=== PATIENT | female | born 1965 | race Hispanic/Latino ===

== ENCOUNTER 2017-04-02 14:02 | Inpatient (IN) | payer MEDICARE, MEDICAID ==
[2017-04-02] MEDS ORDERED: Oxycodone/Acetaminophen 5/325 mg Tab PO STA (15:09)
--- NOTE | 2017-04-02 15:17 | ED PDOC ---
HPI: Back Time Seen by Provider: 04/02/17 14:21 Chief Complaint (Nursing): Back Pain Chief Complaint (Provider): bradycardia History Per: Patient History/Exam Limitations: no limitations Onset/Duration Of Symptoms: Days (1) Current Symptoms Are (Timing): Still Present Additional Complaint(s): Chronic back pain which has been getting progressively worse for the last 3 months. Started taking clonidine 4 days ago to relieve pain. She does not remember the dose because it was actually prescribed to her over 1 and 1/2 years ago, after her last back surgery. She took 2 pills on the first day, and then 1 additional pill daily, last dose this morning. In addition she took her regular pain medications (Roxicet and MS Contin). Went for follow up visit with her pain management physician today and sent to ER for severely low heart rate. Admits that for the last month she has been having increasing falls. PMD Dr Austen Negrete. Past Medical History Reviewed: Historical Data, Nursing Documentation, Vital Signs Vital Signs: Last Vital Signs Temp 97 F L 04/02/17 14:08 Pulse 35 L 04/02/17 14:08 Resp 16 04/02/17 14:08 BP 145/83 04/02/17 14:08 Pulse Ox 100 04/02/17 14:08 - Medical History PMH: Anxiety, Back Problems - Surgical History Surgical History: Back Surgery Other surgeries: Ectopic - Family History Family History: States: No Known Family Hx - Social History Current smoker - smoking cessation education provided: Yes Alcohol: None Drugs: Denies - Home Medications Home Medications: Ambulatory Orders Medication Instructions Recorded Alprazolam [Xanax] 1 mg PO BID PRN 04/02/17 Escitalopram [Lexapro] 20 mg PO DAILY 04/02/17 Ivermectin [Stromectol] 3 mg PO DAILY 04/02/17 Morphine Sulfate [Morphine Sulfate 60 mg PO Q12H 04/02/17 ER] Multivitamin/Iron/Folic Acid 1 tab PO DAILY 04/02/17 [Centrum Complete Multivit Tab] Pregabalin [Lyrica] 100 mg PO Q8H 04/02/17 Zolpidem [Ambien] 10 mg PO HS 04/02/17 oxyCODONE [oxyCODONE Immediate 30 mg PO Q6H 04/02/17 Release Tab] - Allergies Allergies/Adverse Reactions: Allergies Allergy/AdvReac Type Severity Reaction Status Date / Time No Known Allergies Allergy Verified 11/27/14 16:34 Review of Systems ROS Statement: Except As Marked, All Systems Reviewed And Found Negative (and as per HPI) Cardiovascular: Negative for: Chest Pain, Light Headedness Respiratory: Negative for: Shortness of Breath Musculoskeletal: Positive for: Back Pain, Leg Pain Physical Exam - Reviewed Nursing Documentation Reviewed: Yes Vital Signs Reviewed: Yes - Physical Exam Appears: Positive for: No Acute Distress Head Exam: Positive for: ATRAUMATIC, NORMOCEPHALIC Skin: Positive for: Warm, Dry Eye Exam: Positive for: EOMI, PERRL ENT: Positive for: Pharynx Is (clear), Other (dry mucus membranes) Neck: Positive for: Painless ROM, Supple Cardiovascular/Chest: Positive for: Chest Non Tender, Bradycardia. Negative for : Murmur Respiratory: Positive for: Normal Breath Sounds. Negative for: Rales, Respiratory Distress Gastrointestinal/Abdominal: Positive for: Soft. Negative for: Tenderness Back: Positive for: Vertebral Tenderness (lumbar and paraspinal, distractable) Extremity: Positive for: Normal ROM. Negative for: Deformity Lymphatic: Negative for: Adenopathy Neurologic/Psych: Positive for: Alert, Other (speech slurred). Negative for: Motor/Sensory Deficits - Laboratory Results Result Diagrams: 04/02/17 14:00 04/02/17 15:24 - ECG ECG Rhythm: Positive for: Normal QRS, Normal ST Segment, Sinus Bradycardia O2 Sat by Pulse Oximetry: 100 Pulse Ox Interpretation: Normal - Progress ED Course And Treament: Pt already at risk of falls due to worsening back issues and chronic benzodiazepiene and opiate use. Needs hospitalization for observation, concern for clonidine effect worsening to AV block or syncope. - Physician Consult Information Physician Contacted: Selma Parra Outcome Of Conversation: Will put in orders for inpatient pain management. Disposition - Clinical Impression Clinical Impression: Back pain, Bradycardia Discussed With DrSergio: Slim Ritchie Comment: Medical Service Doctor Will See Patient In The: Hospital Counseled Patient/Family Regarding: Studies Performed, Diagnosis - Disposition Disposition Time: 15:30 Condition: GUARDED - Pt Status Changed To: Hospital Disposition Of: Observation - POA Present On Arrival: Falls Or Trauma
[2017-04-02] MEDS ORDERED: Oxycodone/Acetaminophen 5/325 mg Tab ONE (15:33)
[2017-04-02 15:34] LABS: BASO # 0.1 K/uL (0.0-0.2); BASO % 1.1 % (0.0-2.0); EOS # 0.2 K/uL (0.0-0.7); EOS % 1.8 % (0.0-4.0); HEMATOCRIT 43.7 % (34.0-47.0); LYMPH # 1.9 K/uL (1.0-4.3); LYMPH % 20.3 % (20.0-40.0); MEAN CELL VOLUME 94.6 fl (81.0-99.0); MEAN CORPUSCULAR HEMOGLOBIN 31.2 pg (27.0-31.0); MEAN PLATELET VOLUME 8.8 fl (7.2-11.7); MONO # 0.5 K/uL (0.0-0.8); MONO % 5.3 % (0.0-10.0); NEUT # 6.8 K/uL (1.8-7.0); NEUT % 71.5 % (50.0-75.0); NRBC % 0.1 % (0.0-0.0); RED CELL DISTRIBUTION WIDTH 14.3 % (11.5-14.5); WHITE BLOOD COUNT 9.5 K/uL (4.8-10.8)
[2017-04-02 15:42] LABS: ALB/GLOB RATIO 1.4 (1.0-2.1); ALCOHOL SERUM < 10 mg/dl (0-10); ALKALINE PHOSPHATASE 90 U/L (38-126); ALT/SGPT 25 U/L (9-52); AST/SGOT 20 U/L (14-36); BILIRUBIN,TOTAL 0.2 mg/dl (0.2-1.3); BLOOD UREA NITROGEN 9 mg/dl (7-17); CALCIUM 9.6 mg/dL (8.4-10.2); CARBON DIOXIDE 26 mmol/L (22-30); CHLORIDE 101 mmol/L (98-107); GFR AFRICAN-AMERICAN > 60; GLUCOSE,RANDOM 85 mg/dL (65-105); MAGNESIUM 1.7 MG/DL (1.6-2.3); PHOSPHOROUS 3.7 mg/dl (2.5-4.5); SODIUM 141 mmol/l (132-148); TOTAL PROTEIN 7.9 G/DL (6.3-8.2)
[2017-04-02 15:43] LABS: PARTIAL THROMBOPLASTIN TIME 33.8 Seconds (25.6-37.1)
[2017-04-02 16:11] LABS: THYROID STIMULATING HORMONE 0.26 mIU/ML (0.46-4.68)
[2017-04-02] MEDS ORDERED: Morphine 30 mg SR Tab PO SCH (20:45)
[2017-04-02] MEDS: Morphine 30 mg SR Tab PO SCH (22:05)
--- NOTE | 2017-04-03 07:47 | CP.PCM.CON ---
History of Present Illness - History of Present Illness History of Present Illness: Chronic back pain which has been getting progressively worse for the last 3 months. Started taking clonidine ( on her own) 4 days ago to relieve pain. She does not remember the dose because it was actually prescribed to her over 1 and 1/2 years ago, after her last back surgery. She took 2 pills on the first day, and then 1-2 pills daily for the last 5-6 days, last dose the morning of admission Her HR at time of my exam was 50 BPM HR rises with movement She is asymptomatic from the Bradycardia EKG: sinus Bradycardia Troponin: neg Echo: normal Past Patient History - Past Medical History & Family History Past Medical History?: Yes - Past Social History Smoking Status: Heavy Smoker > 10 Cigarettes Daily - CARDIAC Hx Cardiac Disorders: No - PULMONARY Hx Respiratory Disorders: No - NEUROLOGICAL Hx Neurological Disorder: No - HEENT Hx HEENT Problems: No - RENAL Hx Chronic Kidney Disease: No - ENDOCRINE/METABOLIC Hx Endocrine Disorders: No - HEMATOLOGICAL/ONCOLOGICAL Hx Blood Disorders: No Hx AIDS: No Hx Human Immunodeficiency Virus (HIV): No - INTEGUMENTARY Hx Dermatological Problems: No - MUSCULOSKELETAL/RHEUMATOLOGICAL Hx Musculoskeletal Disorders: Yes Hx Back Pain: Yes Hx Falls: Yes - GASTROINTESTINAL Hx Gastrointestinal Disorders: No - GENITOURINARY/GYNECOLOGICAL Hx Genitourinary Disorders: Yes Hx Incontinence: Yes - PSYCHIATRIC Hx Psychophysiologic Disorder: Yes Hx Anxiety: Yes Hx Substance Use: No - SURGICAL HISTORY Hx Surgeries: Yes Other/Comment: Back surgeries - ANESTHESIA Hx Anesthesia: Yes Hx Anesthesia Reactions: No Meds Allergies/Adverse Reactions: Allergies Allergy/AdvReac Type Severity Reaction Status Date / Time No Known Allergies Allergy Verified 11/27/14 16:34 - Medications Medications: Current Medications Enoxaparin Sodium (Lovenox) 40 mg SC DAILY [facility] PRN Reason: Protocol Hydromorphone HCl (Dilaudid) 4 mg PO Q6 PRN PRN Reason: Pain, severe (8-10) Last Admin: 04/03/17 01:05 Dose: 4 mg Morphine Sulfate (Morphine Extended Release Tab) 60 mg PO Q12 [facility] Last Admin: 04/02/17 22:05 Dose: 60 mg Multivitamins/Minerals (Therapeutic-M Tab) 1 tab PO DAILY [facility] Pregabalin (Lyrica) 100 mg PO Q8H [facility] Last Admin: 04/02/17 20:30 Dose: Not Given Zolpidem Tartrate (Ambien) 5 mg PO HS [facility] Last Admin: 04/02/17 22:12 Dose: Not Given Physical Exam - Constitutional Appears: Well - Respiratory Exam Respiratory Exam: NORMAL BREATHING PATTERN - Cardiovascular Exam Cardiovascular Exam: Bradycardia Results - Vital Signs Recent Vital Signs: Last Vital Signs Temp 97.3 F L 04/03/17 05:20 Pulse 39 L 04/03/17 05:20 Resp 18 04/03/17 05:20 BP 96/60 L 04/03/17 05:20 Pulse Ox 98 04/03/17 05:20 - Labs Result Diagrams: 04/02/17 14:00 04/02/17 15:24 Labs: Laboratory Results - last 24 hr 04/02/17 04/02/17 04/02/17 14:00 15:24 15:24 WBC 9.5 RBC 4.62 Hgb 14.4 Hct 43.7 MCV 94.6 D MCH 31.2 H MCHC 33.0 RDW 14.3 Plt Count 444 H D MPV 8.8 Neut % (Auto) 71.5 Lymph % (Auto) 20.3 [place] % (Auto) 5.3 Eos % (Auto) 1.8 Baso % (Auto) 1.1 Neut # 6.8 Lymph # 1.9 [place] # 0.5 Eos # 0.2 Baso # 0.1 PT INR APTT Sodium 141 Potassium 4.0 Chloride 101 Carbon Dioxide 26 Anion Gap 18 BUN 9 Creatinine 0.7 Est GFR ( Amer) > 60 Est GFR (Non-Af Amer) > 60 Random Glucose 85 Calcium 9.6 Phosphorus 3.7 Magnesium 1.7 Total Bilirubin 0.2 AST 20 ALT 25 Alkaline Phosphatase 90 Troponin I 0.0230 NT-Pro-B Natriuret Pep 722 Total Protein 7.9 Albumin 4.6 Globulin 3.3 Albumin/Globulin Ratio 1.4 TSH 3rd Generation 0.26 L Salicylates 6.9 Urine Opiates Screen Urine Methadone Screen Acetaminophen < 10.0 L Ur Barbiturates Screen Ur Phencyclidine Scrn Ur Amphetamines Screen U Benzodiazepines Scrn U Oth Cocaine Metabols U Cannabinoids Screen Alcohol, Quantitative < 10 04/02/17 04/03/17 15:24 03:01 WBC RBC Hgb Hct MCV MCH MCHC RDW Plt Count MPV Neut % (Auto) Lymph % (Auto) [place] % (Auto) Eos % (Auto) Baso % (Auto) Neut # Lymph # [place] # Eos # Baso # PT 11.1 INR 1.0 APTT 33.8 Sodium Potassium Chloride Carbon Dioxide Anion Gap BUN Creatinine Est GFR ( Amer) Est GFR (Non-Af Amer) Random Glucose Calcium Phosphorus Magnesium Total Bilirubin AST ALT Alkaline Phosphatase Troponin I NT-Pro-B Natriuret Pep Total Protein Albumin Globulin Albumin/Globulin Ratio TSH 3rd Generation Salicylates Urine Opiates Screen Positive H Urine Methadone Screen Negative Acetaminophen Ur Barbiturates Screen Negative Ur Phencyclidine Scrn Negative Ur Amphetamines Screen Negative U Benzodiazepines Scrn Positive U Oth Cocaine Metabols Negative U Cannabinoids Screen Negative Alcohol, Quantitative Assessment & Plan (1) Back pain Status: Acute (2) Bradycardia Assessment and Plan: Most likely secondary to meds will observe Status: Acute (3) Anxiety Status: Acute (4) Opiate dependence Status: Acute
--- NOTE | 2017-04-03 08:04 | CP.PCM.CON ---
History of Present Illness - History of Present Illness History of Present Illness: 52 yo woman from pain clinic is admitted for sinus bradycardia. 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 She was asymptomatic, but admitted to several episodes of lightheadedness and falls in the past several months. Her pain meds haven't been changed recently, in fact, they have been reduced and thus the need for her to take clonidine on her own. She has severe pain in her lower back, radiating down the legs and hips. She had attempted to undergo MRI as an outpatient but couldn't tolerate it due to pain. Past Patient History - Past Medical History & Family History Past Medical History?: Yes - Past Social History Smoking Status: Heavy Smoker > 10 Cigarettes Daily - CARDIAC Hx Cardiac Disorders: No - PULMONARY Hx Respiratory Disorders: No - NEUROLOGICAL Hx Neurological Disorder: No - HEENT Hx HEENT Problems: No - RENAL Hx Chronic Kidney Disease: No - ENDOCRINE/METABOLIC Hx Endocrine Disorders: No - HEMATOLOGICAL/ONCOLOGICAL Hx Blood Disorders: No Hx AIDS: No Hx Human Immunodeficiency Virus (HIV): No - INTEGUMENTARY Hx Dermatological Problems: No - MUSCULOSKELETAL/RHEUMATOLOGICAL Hx Musculoskeletal Disorders: Yes Hx Back Pain: Yes Hx Falls: Yes - GASTROINTESTINAL Hx Gastrointestinal Disorders: No - GENITOURINARY/GYNECOLOGICAL Hx Genitourinary Disorders: Yes Hx Incontinence: Yes - PSYCHIATRIC Hx Psychophysiologic Disorder: Yes Hx Anxiety: Yes Hx Substance Use: No - SURGICAL HISTORY Hx Surgeries: Yes Other/Comment: Back surgeries - ANESTHESIA Hx Anesthesia: Yes Hx Anesthesia Reactions: No Meds Allergies/Adverse Reactions: Allergies Allergy/AdvReac Type Severity Reaction Status Date / Time No Known Allergies Allergy Verified 11/27/14 16:34 - Medications Medications: Current Medications Enoxaparin Sodium (Lovenox) 40 mg SC DAILY [facility] PRN Reason: Protocol Hydromorphone HCl (Dilaudid) 4 mg PO Q6 PRN PRN Reason: Pain, severe (8-10) Last Admin: 04/03/17 01:05 Dose: 4 mg Morphine Sulfate (Morphine Extended Release Tab) 60 mg PO Q12 [facility] Last Admin: 04/02/17 22:05 Dose: 60 mg Multivitamins/Minerals (Therapeutic-M Tab) 1 tab PO DAILY [facility] Pregabalin (Lyrica) 100 mg PO Q8H [facility] Last Admin: 04/02/17 20:30 Dose: Not Given Zolpidem Tartrate (Ambien) 5 mg PO HS [facility] Last Admin: 04/02/17 22:12 Dose: Not Given Physical Exam - Back Exam Back exam: paraspinal tenderness, vertebral tenderness Additional comments: Well-healed surgical scar. Results - Vital Signs Recent Vital Signs: Last Vital Signs Temp 97.3 F L 04/03/17 05:20 Pulse 39 L 04/03/17 05:20 Resp 18 04/03/17 05:20 BP 96/60 L 04/03/17 05:20 Pulse Ox 98 04/03/17 05:20 - Labs Result Diagrams: 04/02/17 14:00 04/02/17 15:24 Labs: Laboratory Results - last 24 hr 04/02/17 04/02/17 04/02/17 14:00 15:24 15:24 WBC 9.5 RBC 4.62 Hgb 14.4 Hct 43.7 MCV 94.6 D MCH 31.2 H MCHC 33.0 RDW 14.3 Plt Count 444 H D MPV 8.8 Neut % (Auto) 71.5 Lymph % (Auto) 20.3 [place] % (Auto) 5.3 Eos % (Auto) 1.8 Baso % (Auto) 1.1 Neut # 6.8 Lymph # 1.9 [place] # 0.5 Eos # 0.2 Baso # 0.1 PT INR APTT Sodium 141 Potassium 4.0 Chloride 101 Carbon Dioxide 26 Anion Gap 18 BUN 9 Creatinine 0.7 Est GFR ( Amer) > 60 Est GFR (Non-Af Amer) > 60 Random Glucose 85 Calcium 9.6 Phosphorus 3.7 Magnesium 1.7 Total Bilirubin 0.2 AST 20 ALT 25 Alkaline Phosphatase 90 Troponin I 0.0230 NT-Pro-B Natriuret Pep 722 Total Protein 7.9 Albumin 4.6 Globulin 3.3 Albumin/Globulin Ratio 1.4 TSH 3rd Generation 0.26 L Salicylates 6.9 Urine Opiates Screen Urine Methadone Screen Acetaminophen < 10.0 L Ur Barbiturates Screen Ur Phencyclidine Scrn Ur Amphetamines Screen U Benzodiazepines Scrn U Oth Cocaine Metabols U Cannabinoids Screen Alcohol, Quantitative < 10 04/02/17 04/03/17 15:24 03:01 WBC RBC Hgb Hct MCV MCH MCHC RDW Plt Count MPV Neut % (Auto) Lymph % (Auto) [place] % (Auto) Eos % (Auto) Baso % (Auto) Neut # Lymph # [place] # Eos # Baso # PT 11.1 INR 1.0 APTT 33.8 Sodium Potassium Chloride Carbon Dioxide Anion Gap BUN Creatinine Est GFR ( Amer) Est GFR (Non-Af Amer) Random Glucose Calcium Phosphorus Magnesium Total Bilirubin AST ALT Alkaline Phosphatase Troponin I NT-Pro-B Natriuret Pep Total Protein Albumin Globulin Albumin/Globulin Ratio TSH 3rd Generation Salicylates Urine Opiates Screen Positive H Urine Methadone Screen Negative Acetaminophen Ur Barbiturates Screen Negative Ur Phencyclidine Scrn Negative Ur Amphetamines Screen Negative U Benzodiazepines Scrn Positive U Oth Cocaine Metabols Negative U Cannabinoids Screen Negative Alcohol, Quantitative Assessment & Plan (1) Bradycardia Assessment and Plan: 52 yo woman w/ chronic pain, on chronic pain meds that haven't been changed recently, was admitted for sinus lana. Work-up ongoing. Patient admitted to taking Clonidine for the last four days, but did admit to feeling lightheaded and having falls in previous months prior to taking the clonidine. Pain has been worsening recently but patient aborted an outpatient MRI due to pain while in the machine. - f/u cardiology work-up - resume pain meds, substitute Dilaudid 4mg PO for roxicodone 30mg while admitted - please obtain a lumbar MRI prior to discharge if feasible Status: Acute
[2017-04-03] MEDS: Morphine 30 mg SR Tab PO SCH ×2 (09:54→23:29)
[2017-04-03] MEDS: Enoxaparin 40 mg Syringe SC SCH (09:55)
[2017-04-03] MEDS: Multivitamin With Minerals Tab PO SCH (09:55)
--- NOTE | 2017-04-03 11:35 | CARD ---
APPROVED REPORT EXAM: Two-dimensional and M-mode echocardiogram with Doppler and color Doppler. Other Information Quality : GoodRhythm : Bradycardia INDICATION Abnormal EKG/Arrhythmia 2D DIMENSIONS IVSd1.28 (0.7-1.1cm)LVDd4.33 (3.9-5.9cm) LVOT Diameter1.64 (1.8-2.4cm)PWd1.22 (0.7-1.1cm) IVSs2.01 (0.8-1.2cm)LVDs2.35 (2.5-4.0cm) FS (%) 45.8 %PWs1.93 (0.8-1.2cm) M-Mode DIMENSIONS Left Atrium (MM)4.59 (2.5-4.0cm)IVSd1.21 (0.7-1.1cm) Aortic Root2.21 (2.2-3.7cm)LVDd5.44 (4.0-5.6cm) Aortic Cusp Exc.1.68 (1.5-2.0cm)PWd0.88 (0.7-1.1cm) IVSs1.53 cmFS (%) 42 % LVDs3.15 (2.0-3.8cm)PWs1.88 cm Mitral Valve MV E Tsvqtccx50.3cm/sMV DECEL [id number] A Kzglhwci97.8cm/s MV [id number] ratio1.7MVA (PHT)2.58cm2 TDI Lateral E' Peak V14.75cm/sMedial E' Peak V9.70cm/sE/Lateral E'5.3 E/Medial E'8.1 Pulmonary Valve PV Peak Zrsuptnt310.1cm/s LEFT VENTRICLE The left ventricle is normal size. There is borderline concentric left ventricular hypertrophy. Left ventricle systolic function is normal. The Ejection Fraction is 65-70%. There is normal LV segmental wall motion. The left ventricular diastolic function is normal. RIGHT VENTRICLE The right ventricle is normal size. There is normal right ventricular wall thickness. The right ventricular systolic function is normal. ATRIA The left atrium size is normal. The right atrium size is normal. AORTIC VALVE The aortic valve is normal in structure. No aortic regurgitation is present. There is no aortic valvular stenosis. MITRAL VALVE The mitral valve is normal in structure. There is no evidence of mitral valve prolapse. There is no mitral valve stenosis. There is no mitral valve regurgitation noted. TRICUSPID VALVE The tricuspid valve is normal in structure. There is no tricuspid valve regurgitation noted. PULMONIC VALVE The pulmonary valve is normal in structure. There is no pulmonic valvular regurgitation. GREAT VESSELS The aortic root is normal in size. The IVC is normal in size and collapses >50% with inspiration. PERICARDIAL EFFUSION The pericardium appears normal. <Conclusion> The left ventricle is normal size. There is normal LV segmental wall motion. Left ventricle systolic function is normal. The Ejection Fraction is 65-70%. The left ventricular diastolic function is normal.
--- NOTE | 2017-04-03 12:06 | CARD ---
APPROVED REPORT EKG Measurement Heart [id number] <Conclusion> Marked sinus bradycardia Abnormal ECG
--- NOTE | 2017-04-03 12:15 | CP.PCM.HP ---
History of Present Illness - History of Present Illness History of Present Illness: 52 year old female with hx of chronic back pain admitted for bradycardia. Patient was at pain management, found to be bradycardic and sent to ED. She was found to havem marked sinus bradycardia. She states she sees Dr. Parra, she takes Yanely's and Oxycodone for 3 years. She took some clonidine that was a few years old, maybe 3 or 4, unsure of the dosing. Her back pain is severe, and states she is to have another back surgery and that Dr. Parra is in coordination with surgeon. She does not have any dizziness, chest pain, dyspnea. 12 point review of systems negative except as per HPI PMH: chronic back pain, anxiety Medications reviewed AllergieS: NKDA Social: Smoker, no ETOH/illicit drug use. Present on Admission - Present on Admission Any Indicators Present on Admission: No Past Patient History - Past Medical History & Family History Past Medical History?: Yes - Past Social History Smoking Status: Heavy Smoker > 10 Cigarettes Daily - CARDIAC Hx Cardiac Disorders: No - PULMONARY Hx Respiratory Disorders: No - NEUROLOGICAL Hx Neurological Disorder: No - HEENT Hx HEENT Problems: No - RENAL Hx Chronic Kidney Disease: No - ENDOCRINE/METABOLIC Hx Endocrine Disorders: No - HEMATOLOGICAL/ONCOLOGICAL Hx Blood Disorders: No Hx AIDS: No Hx Human Immunodeficiency Virus (HIV): No - INTEGUMENTARY Hx Dermatological Problems: No - MUSCULOSKELETAL/RHEUMATOLOGICAL Hx Musculoskeletal Disorders: Yes Hx Back Pain: Yes Hx Falls: Yes - GASTROINTESTINAL Hx Gastrointestinal Disorders: No - GENITOURINARY/GYNECOLOGICAL Hx Genitourinary Disorders: Yes Hx Incontinence: Yes - PSYCHIATRIC Hx Psychophysiologic Disorder: Yes Hx Anxiety: Yes Hx Substance Use: No - SURGICAL HISTORY Hx Surgeries: Yes Other/Comment: Back surgeries - ANESTHESIA Hx Anesthesia: Yes Hx Anesthesia Reactions: No Meds Allergies/Adverse Reactions: Allergies Allergy/AdvReac Type Severity Reaction Status Date / Time No Known Allergies Allergy Verified 11/27/14 16:34 Physical Exam - Constitutional Appears: Non-toxic, No Acute Distress - Head Exam Head Exam: ATRAUMATIC, NORMAL INSPECTION, NORMOCEPHALIC - Eye Exam Eye Exam: EOMI, Normal appearance, PERRL - Respiratory Exam Respiratory Exam: Clear to Auscultation Bilateral, NORMAL BREATHING PATTERN - Cardiovascular Exam Cardiovascular Exam: Bradycardia, REGULAR RHYTHM, +S1, +S2 Additional comments: distant heart sounds - Extremities Exam Extremities exam: Positive for: normal inspection. Negative for: pedal edema - Neurological Exam Neurological exam: Alert, CN II-XII Intact - Skin Skin Exam: Dry, Intact, Normal Color, Warm Results - Vital Signs Recent Vital Signs: Last Vital Signs Temp 98.2 F 04/03/17 12:00 Pulse 35 L 04/03/17 12:00 Resp 18 04/03/17 12:00 BP 97/54 L 04/03/17 12:00 Pulse Ox 100 04/03/17 12:00 - Labs Result Diagrams: 04/02/17 14:00 04/02/17 15:24 Labs: Laboratory Results - last 24 hr 04/02/17 04/02/17 04/02/17 14:00 15:24 15:24 WBC 9.5 RBC 4.62 Hgb 14.4 Hct 43.7 MCV 94.6 D MCH 31.2 H MCHC 33.0 RDW 14.3 Plt Count 444 H D MPV 8.8 Neut % (Auto) 71.5 Lymph % (Auto) 20.3 [place] % (Auto) 5.3 Eos % (Auto) 1.8 Baso % (Auto) 1.1 Neut # 6.8 Lymph # 1.9 [place] # 0.5 Eos # 0.2 Baso # 0.1 PT INR APTT Sodium 141 Potassium 4.0 Chloride 101 Carbon Dioxide 26 Anion Gap 18 BUN 9 Creatinine 0.7 Est GFR ( Amer) > 60 Est GFR (Non-Af Amer) > 60 POC Glucose (mg/dL) Random Glucose 85 Calcium 9.6 Phosphorus 3.7 Magnesium 1.7 Total Bilirubin 0.2 AST 20 ALT 25 Alkaline Phosphatase 90 Troponin I 0.0230 NT-Pro-B Natriuret Pep 722 Total Protein 7.9 Albumin 4.6 Globulin 3.3 Albumin/Globulin Ratio 1.4 TSH 3rd Generation 0.26 L Salicylates 6.9 Urine Opiates Screen Urine Methadone Screen Acetaminophen < 10.0 L Ur Barbiturates Screen Ur Phencyclidine Scrn Ur Amphetamines Screen U Benzodiazepines Scrn U Oth Cocaine Metabols U Cannabinoids Screen Alcohol, Quantitative < 10 04/02/17 04/03/17 04/03/17 15:24 03:01 11:20 WBC RBC Hgb Hct MCV MCH MCHC RDW Plt Count MPV Neut % (Auto) Lymph % (Auto) [place] % (Auto) Eos % (Auto) Baso % (Auto) Neut # Lymph # [place] # Eos # Baso # PT 11.1 INR 1.0 APTT 33.8 Sodium Potassium Chloride Carbon Dioxide Anion Gap BUN Creatinine Est GFR ( Amer) Est GFR (Non-Af Amer) POC Glucose (mg/dL) 74 Random Glucose Calcium Phosphorus Magnesium Total Bilirubin AST ALT Alkaline Phosphatase Troponin I NT-Pro-B Natriuret Pep Total Protein Albumin Globulin Albumin/Globulin Ratio TSH 3rd Generation Salicylates Urine Opiates Screen Positive H Urine Methadone Screen Negative Acetaminophen Ur Barbiturates Screen Negative Ur Phencyclidine Scrn Negative Ur Amphetamines Screen Negative U Benzodiazepines Scrn Positive U Oth Cocaine Metabols Negative U Cannabinoids Screen Negative Alcohol, Quantitative Assessment & Plan (1) Sinus bradycardia Assessment and Plan: 52 year old female with hx of chronic back pain admitted with new onset bradycardia. EKG this AM: Sinus bradycardia. Patient had echo done, unremarkable. EF WNL Cardiology consult: Dr. Estradas, Dr. Freire Pain management consult: Dr. Parra TSH is suppressed, repeat #Sinus Bradycardia #Chronic back pain #Anxiety #Low TSH #DVT PPX -Awaiting cardiology input -pain control as per pain management -Lovenox Status: Chronic (2) Back pain Status: Acute (3) Anxiety Status: Chronic (4) Opiate dependence Status: Chronic (5) DVT prophylaxis Status: Acute
[2017-04-03] MEDS ORDERED: Sodium Chloride 0.9% 1,000 ML IV SCH (20:15)
[2017-04-04 08:12] VITALS: RESP 18
[2017-04-04] MEDS: Multivitamin With Minerals Tab PO SCH (08:45)
[2017-04-04] MEDS: Enoxaparin 40 mg Syringe SC SCH (08:46)
[2017-04-04] MEDS: Morphine 30 mg SR Tab PO SCH (10:03)
[2017-04-04 10:14] VITALS: O2SAT 98
[2017-04-04 12:42] VITALS: BP 92/62; PULSE 55; TEMP 97.5
--- NOTE | 2017-04-04 13:30 | CP.PCM.DIS ---
Provider - Provider Date of Admission: 04/03/17 10:01 Attending physician: Slim Ritchie MD Consults: Cardiology: Emerald Harris Dr. Mathews Pain Management: Dr. Parra Time Spent in preparation of Discharge (in minutes): 35 Diagnosis - Discharge Diagnosis (1) Sinus bradycardia Status: Acute (2) Back pain Status: Chronic (3) Anxiety Status: Chronic (4) Opiate dependence Status: Chronic (5) DVT prophylaxis Status: Resolved Hospital Course - Lab Results Lab Results: Most Recent Lab Values WBC 9.5 K/uL (4.8-10.8) 04/02/17 14:00 RBC 4.62 Mil/uL (3.80-5.20) 04/02/17 14:00 Hgb 14.4 g/dL (12.0-16.0) 04/02/17 14:00 Hct 43.7 % (34.0-47.0) 04/02/17 14:00 MCV 94.6 fl (81.0-99.0) D 04/02/17 14:00 MCH 31.2 pg (27.0-31.0) H 04/02/17 14:00 MCHC 33.0 g/dL (33.0-37.0) 04/02/17 14:00 RDW 14.3 % (11.5-14.5) 04/02/17 14:00 Plt Count 444 K/uL (130-400) H D 04/02/17 14:00 MPV 8.8 fl (7.2-11.7) 04/02/17 14:00 Neut % (Auto) 71.5 % (50.0-75.0) 04/02/17 14:00 Lymph % (Auto) 20.3 % (20.0-40.0) 04/02/17 14:00 Traill % (Auto) 5.3 % (0.0-10.0) 04/02/17 14:00 Eos % (Auto) 1.8 % (0.0-4.0) 04/02/17 14:00 Baso % (Auto) 1.1 % (0.0-2.0) 04/02/17 14:00 Neut # 6.8 K/uL (1.8-7.0) 04/02/17 14:00 Lymph # 1.9 K/uL (1.0-4.3) 04/02/17 14:00 Traill # 0.5 K/uL (0.0-0.8) 04/02/17 14:00 Eos # 0.2 K/uL (0.0-0.7) 04/02/17 14:00 Baso # 0.1 K/uL (0.0-0.2) 04/02/17 14:00 PT 11.1 Seconds (9.8-13.1) 04/02/17 15:24 INR 1.0 (0.9-1.2) 04/02/17 15:24 APTT 33.8 Seconds (25.6-37.1) 04/02/17 15:24 Sodium 141 mmol/l (132-148) 04/02/17 15:24 Potassium 4.0 MMOL/L (3.6-5.0) 04/02/17 15:24 Chloride 101 mmol/L (98-107) 04/02/17 15:24 Carbon Dioxide 26 mmol/L (22-30) 04/02/17 15:24 Anion Gap 18 (10-20) 04/02/17 15:24 BUN 9 mg/dl (7-17) 04/02/17 15:24 Creatinine 0.7 mg/dl (0.7-1.2) 04/02/17 15:24 Est GFR ( Amer) > 60 04/02/17 15:24 Est GFR (Non-Af Amer) > 60 04/02/17 15:24 POC Glucose (mg/dL) 74 mg/dL (65-110) 04/03/17 11:20 Random Glucose 85 mg/dL (65-105) 04/02/17 15:24 Calcium 9.6 mg/dL (8.4-10.2) 04/02/17 15:24 Phosphorus 3.7 mg/dl (2.5-4.5) 04/02/17 15:24 Magnesium 1.7 MG/DL (1.6-2.3) 04/02/17 15:24 Total Bilirubin 0.2 mg/dl (0.2-1.3) 04/02/17 15:24 AST 20 U/L (14-36) 04/02/17 15:24 ALT 25 U/L (9-52) 04/02/17 15:24 Alkaline Phosphatase 90 U/L (38-126) 04/02/17 15:24 Troponin I 0.0230 ng/mL (0.00-0.120) 04/02/17 15:24 NT-Pro-B Natriuret Pep 722 pg/ml (0-900) 04/02/17 15:24 Total Protein 7.9 G/DL (6.3-8.2) 04/02/17 15:24 Albumin 4.6 g/dL (3.5-5.0) 04/02/17 15:24 Globulin 3.3 gm/dL (2.2-3.9) 04/02/17 15:24 Albumin/Globulin Ratio 1.4 (1.0-2.1) 04/02/17 15:24 TSH 3rd Generation 0.26 mIU/ML (0.46-4.68) L 04/02/17 15:24 Salicylates 6.9 mg/dl 04/02/17 15:24 Urine Opiates Screen Positive (NEGATIVE) H 04/03/17 03:01 Urine Methadone Screen Negative (NEGATIVE) 04/03/17 03:01 Acetaminophen < 10.0 ug/ml (10.0-30.0) L 04/02/17 15:24 Ur Barbiturates Screen Negative (NEGATIVE) 04/03/17 03:01 Ur Phencyclidine Scrn Negative (NEGATIVE) 04/03/17 03:01 Ur Amphetamines Screen Negative (NEGATIVE) 04/03/17 03:01 U Benzodiazepines Scrn Positive (NEGATIVE) 04/03/17 03:01 U Oth Cocaine Metabols Negative (NEGATIVE) 04/03/17 03:01 U Cannabinoids Screen Negative (NEGATIVE) 04/03/17 03:01 Alcohol, Quantitative < 10 mg/dl (0-10) 04/02/17 15:24 - Hospital Course Hospital Course: 52 year old female with hx of chronic back pain admitted with new onset bradycardia. EKG: Sinus bradycardia. Patient had echo done, unremarkable. EF WNL. She has low TSH, likely contributing her bradycardia. She should follow up outpatient with Endocrinology. She has been cleared for discharge by cardiology. Pain control as per pain managment. - Date & Time of H&P Date of H&P: 04/03/17 Time of H&P: 12:15 Discharge Exam - Head Exam Head Exam: ATRAUMATIC, NORMOCEPHALIC - Eye Exam Eye Exam: EOMI, Normal appearance, PERRL - ENT Exam Additional comments: poor dentition, missing most teeth - Respiratory Exam Respiratory Exam: UNREMARKABLE - Cardiovascular Exam Cardiovascular Exam: Bradycardia, REGULAR RHYTHM, +S1, +S2 - GI/Abdominal Exam GI & Abdominal Exam: Unremarkable - Extremities Exam Extremities exam: normal inspection - Neurological Exam Neurological exam: Alert, CN II-XII Intact, Oriented x3, Reflexes Normal - Psychiatric Exam Psychiatric exam: Normal Affect, Normal Mood - Skin Skin Exam: Normal Color Discharge Plan - Discharge Medications Prescriptions: Oxycodone HCl [Roxicodone] 30 mg PO Q6 PRN #21 tablet PRN Reason: pain - Follow Up Plan Condition: GUARDED Disposition: HOME/ ROUTINE Instructions: Bradycardia (DC), Back Pain (GEN) Additional Instructions: pt. doing well today, denies dizziness, cp, sob, palpitations HR 46- 52 in NSR today pt. seen by Dr.J Stevens and today Pt. cleared for d/c today by , , Dr. Hammonds f/u with pmd and outpatient Referrals: Chano Negrete DO [Family Provider] - Selma Parra MD [Staff Provider] -
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
== END 2017-04-04 13:43 | disposition home or self-care (01) | DRG 309 ==
LOC: H.ER 14:02 → H.ERHOLD 15:06 → H.TEL 17:44 → OBSVTOIN 04-03 10:01
PROVIDERS: ADMIT Family Medicine; ATTEND Family Medicine
DX: R00.1 Bradycardia, unspecified (principal); F11.20 Opioid dependence, uncomplicated; T46.5X1A Poisoning by other antihypertensive drugs, accidental (unintentional), initial encounter; F17.200 Nicotine dependence, unspecified, uncomplicated; F41.9 Anxiety disorder, unspecified; G89.29 Other chronic pain; Z79.899 Other long term (current) drug therapy; Z98.1 Arthrodesis status; M54.5 Low back pain; R42 Dizziness and giddiness; Y92.9 Unspecified place or not applicable

== ENCOUNTER 2017-08-24 07:31 | Day surgery (SDC) | payer MEDICARE, MEDICAID ==
[2017-08-24 08:04] VITALS: BMI 23.4
[2017-08-24] MEDS ORDERED: methylPREDNISolone Depo 80 mg/ml Inj ONE (10:06)
[2017-08-24] MEDS ORDERED: Iohexol 300 10 ML ONE (10:06)
[2017-08-24] MEDS ORDERED: Lidocaine Hydrochloride 1% 10 ML ONE (10:07)
[2017-08-24] MEDS ORDERED: Bupivacaine HCl 0.25% PF (30 ml) Inj ONE (10:07)
[2017-08-24] MEDS ORDERED: Lactated Ringer's 1,000 ML IV ONE (10:10)
[2017-08-24] MEDS ORDERED: Propofol 10 mg/ml Inj (20 ML) ONE (10:21)
[2017-08-24] MEDS ORDERED: Bupivacaine HCl 0.5% PF (30 ml) Inj ONE (10:21)
[2017-08-24] MEDS ORDERED: Lidocaine 1% Inj (20ml) IJ ONE (10:22)
[2017-08-24] MEDS ORDERED: methylPREDNISolone Depo 80 mg/ml Inj IM ONE (10:22)
[2017-08-24] MEDS ORDERED: Bupivacaine 0.5% Inj(30mL) IJ ONE (10:22)
[2017-08-24] MEDS ORDERED: Iohexol 300 10 ML IJ ONE (10:22)
[2017-08-24] MEDS ORDERED: Lactated Ringer's 1,000 ML IV SCH (11:15)
--- NOTE | 2017-08-24 12:13 | OP ---
PROCEDURE DATE: 08/24/2017 PREOPERATIVE DIAGNOSIS: Failed back syndrome. POSTOPERATIVE DIAGNOSIS: Failed back syndrome. PROCEDURE: Bilateral greater trochanteric bursa injection and left sacroiliac joint steroid injection. SURGEON: Selma Parra MD ANESTHESIOLOGIST: Liban Teixeira MD TYPE OF ANESTHESIA: Monitored anesthesia care. COMPLICATIONS: None. SPECIMENS: None. DESCRIPTION OF PROCEDURE: As follows. After we had discussion of the procedure with the patient including its risks, benefits, alternatives, outcome data, possibility of no effect or increased pain, the patient consented to the procedure. She denied any recent infection, bleeding tendencies or being on anticoagulants, a decision was then made to proceed to the OR. The patient was placed on a fluoroscopy table in a prone position with 2 pillows underneath her abdomen. The back was prepped and draped in a usual sterile fashion and a sterile technique was adhered during the entire procedure. The left sacroiliac joint was first visualized on the anterior posterior view. The target is at the posterior opening to the inferior pole of the left sacroiliac joint. The skin overlying this area was then infiltrated with 1% lidocaine using a 25-gauge needle. Subsequently, a 22-gauge 3.5-inch spinal needle was incrementally advanced under fluoroscopic guidance until tip of the needle into the joint capsule. This was confirmed by injecting approximately 0.5 mL of Isovue contrast, which was seen spreading up the joint line. At this point, approximately 3 mL of 0.5% Marcaine and Depo-Medrol mixture was injected. The needle was then removed. Then, the left greater trochanteric bursa was visualized on the anterior-posterior view. The bony point at the skin was marked. A needle was then inserted perpendicular to the skin toward the greater trochanteric bursa on the left under fluoroscopic guidance. After bony contact was made, after negative aspiration, approximately 4 mL of 0.25% Marcaine and Depo-Medrol mixture was injected. The needle was then removed and the same exact procedure was performed on the contralateral right side using the same medications and techniques. At the end of the case, the patient's back was cleaned and dried, and bandages were applied. 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 She was then discharged with instructions to follow up in approximately 2-4 weeks. Selma Parra MD
[2017-08-24] MEDS ORDERED: Oxycodone/Acetaminophen 5/325 mg Tab PO PRN (12:23)
[2017-08-24 12:41] VITALS: RESP 18
[2017-08-24 13:38] VITALS: BP 110/68; PULSE 92; TEMP 98; O2SAT 100
--- NOTE | 2017-08-27 08:21 | RAD ---
PROCEDURE: Intraoperative Fluoroscopy. HISTORY: PAIN MANAGEMENT FINDINGS: Fluoroscopic assistance was provided for apparent sacroiliac joint pain management. Please refer to the operative report from [facility]. 22 seconds of fluoro time was utilized with a cumulative radiation dose of 4.56 mGy.
== END 2017-08-24 13:48 | disposition home or self-care (01) ==
LOC: H.OPSURG 07:31
PROVIDERS: ATTEND Anesthesiology
DX: M96.1 Postlaminectomy syndrome, not elsewhere classified (principal)
CPT/HCPCS: 20610; J1040; J2704; J7120; Q9967